=== PATIENT | female | born 1935 | race Caucasian/White ===

== ENCOUNTER 2016-10-23 10:11 | Emergency (ER) | payer MEDICARE ==
--- NOTE | 2016-10-23 11:37 | RAD ---
LEFT HIP AND AP PELVIS SERIES HISTORY: Left hip pain. Frontal view of the pelvis with frontal and crosstable lateral views of the left hip. Comparison against 10/13/2015. PELVIC RING: Grossly intact. HIP ALIGNMENT: Grossly unremarkable. DEGENERATIVE CHANGE: Worsening of superior joint space narrowing with cystic change of the left femoral head. Moderate to severe axial joint space loss on the right. Dystrophic calcification along the left greater trochanter. LUMBAR SPINE: Severe multilevel lumbar disc degeneration. HIP JOINT SPACES: Preserved. FRACTURE: No displaced fracture identified. IMPRESSION: No malalignment or displaced acute fracture noted. Severe osteoarthritic change of the hips, left greater than right.
--- NOTE | 2016-10-23 12:46 | CT ---
CT EXAMINATION OF THE LEFT HIP HISTORY: Ground-level fall, possible left hip fracture. No intravenous contrast administered. Contiguous axial images acquired through the left hip. FINDINGS: Left hip: Severe osteoarthritic change with prominent subchondral cystic change along the superior articular surface there is a linear fragment raising suspicion for subchondral sclerosis and underlying osteonecrosis. Fracture: Nondisplaced fracture at lateral aspects of the superior pubic ramus. Nondisplaced fracture of the left inferior pubic ramus. Small cortically-based fracture along the left greater trochanter. Soft tissues: No obvious intrapelvic hematoma. Complex left hip effusion. Fatty left inguinal hernia. IMPRESSION: Nondisplaced left superior and inferior pubic rami fractures. Small cortically-based fracture of the left greater trochanter. On a background of severe osteoarthritic change of the left hip, findings suspicious for subchondral collapse and underlying osteonecrosis. Moderate left effusion. Findings discussed with Dr. Childs of the Emergency Medicine clinical service on the date of exam.
--- NOTE | 2016-10-23 14:40 | CT ---
Exam: CT pelvis without contrast COMPARISON: CT left hip 10/23/2016, CT abdomen and pelvis 12/07/2012 and radiographs 10/23/2016 and 10/13/2015 INDICATION: Left pubic rami fractures; evaluate for additional pelvic fractures. TECHNIQUE: CT examination of the pelvis was obtained without contrast. FINDINGS: Osteopenia, which limits evaluation for nondisplaced fracture. Nevertheless, nondisplaced fracture is identified involving the right pubic bone, approximately 1.6 cm lateral to the pubic symphysis. Sacroiliac joints are within normal limits. Sacral foramen are intact; no sacral fracture is identified. Degenerative changes are noted within the lower lumbar spine. Old fracture along the posterior acetabulum on the right is appreciated. Previously described nondisplaced left superior and inferior pubic rami fractures and cortically based fracture of the left greater trochanter as described on earlier left hip CT are again appreciated. Large left joint effusion is again appreciated, with asymmetric osteoarthritis involving the left hip. Less severe osteoarthritis is identified within the right hip. There is no significant pelvic hematoma. Urinary bladder is unremarkable. Visualized bowel is within normal limits. Tiny fat-containing periumbilical hernia is noted. Tiny fat-containing right inguinal hernia is noted and unchanged. IMPRESSION: Nondisplaced fracture within the right pubic bone, approximately 1.6 cm lateral to the pubic symphysis. Earlier described fractures of the left superior and inferior pubic rami and cortically-based fracture involving the left greater trochanter are again appreciated. Findings were discussed with Dr. Childs at 1402 hours 10/23/2016
== END 2016-10-23 14:39 | disposition home or self-care (01) ==
LOC: ED 10:11
DX: S32.592A Other specified fracture of left pubis, initial encounter for closed fracture (principal); I10 Essential (primary) hypertension; J45.909 Unspecified asthma, uncomplicated; F03.90 Unspecified dementia, unspecified severity, without behavioral disturbance, psychotic disturbance, mood disturbance, and anxiety; W18.30XA Fall on same level, unspecified, initial encounter; Y93.01 Activity, walking, marching and hiking; Y92.009 Unspecified place in unspecified non-institutional (private) residence as the place of occurrence of the external cause